=== PATIENT | female | born 1980 | race Caucasian/White ===

== ENCOUNTER 2017-12-20 20:24 | Emergency (ER) | payer OTHER ==
[2017-12-20 20:37] VITALS: BP 133/89
--- NOTE | 2017-12-20 20:50 | EDPHY ---
H & P Time Seen by Provider: 12/20/17 20:36 HPI/ROS: CHIEF COMPLAINT: Lip sores History by patient HISTORY OF PRESENT ILLNESS: 37-year-old woman with a history of recurrent cold sores for which she has taken Valtrex in the past presents complaining of burning pain, itchiness and redness underneath her lower lip. She has had symptoms began several weeks ago with a burning feeling like she was developing a cold sore. She got some relief by applying and I got a lip balm which she has been using regularly for a long time prior to the onset of the symptoms. She has also been in [place], back and forth visiting her father was recently diagnosed with cancer, and norris has had a large amount of sun exposure, and she noticed the symptoms seemed to get worse after being in the sun and she said she did get a sunburn on the area recently which also made it worse. As it seemed to get worse over the past few days on return from [place], she applied a moisturizing a face mask school last night and when she woke up this morning the area of redness had increased and expanded and become very itchy and uncomfortable. Patient denies biting her lip regularly or touching her mouth. She says it is painful to have food touch her lip because of these lesions. She was concerned that it might be related to a herpes cold sore so she took a dose of Valtrex 1000 mg this morning, with plans to take an additional 1000 mg tonight. REVIEW OF SYSTEMS: As in HPI, and all other systems reviewed and are negative Smoking Status: Never smoked Physical Exam: General Appearance: Alert and no distress. Head: normocephalic, atraumatic, no sinus tenderness Eyes: Pupils equal and round no injection. Lips: Upper lip within normal limits, lower lip positive external border of erythema with a cracking and tiny vesicle on right side, no intraoral lesions OP: mucus membranes moist, no tonsillar enlargement, no exudates Neck: no meningismus, no cervical nodes, no submandibular nodes Extremities have full range of motion and are nontender. Neuro: Awake alert oriented x3, cranial nerves 2-12 intact, normal gait Skin: No rashes or lesions except as described above around her mouth. Constitutional: Initial Vital Signs Temperature (C) 36.9 C 12/20/17 20:34 Heart Rate 86 12/20/17 20:34 Respiratory Rate 15 12/20/17 20:34 Blood Pressure 133/89 H 12/20/17 20:34 O2 Sat (%) 100 12/20/17 20:34 O2 Delivery Mode Room Air Allergies/Adverse Reactions: No Known Allergies Allergy (Unverified 12/20/17 20:31) Home Medications: Medication Instructions Recorded Amitriptyline HCl 12/20/17 Lo Ovral 12/20/17 valACYclovir [Valtrex (*)] 500 mg PO DAILY #10 tab 12/20/17 MDM/Departure - [facility] ED Course/Re-evaluation: [age] year old woman presents with area of redness, inflammation and small vesicle underneath her lower lip. I suspect multifactorial contribution of underlying herpes labialis, sun exposure and contact dermatitis from the facemask she applied last night causing worsening of her symptoms. Given the patient has had some degree of symptoms which sound somewhat like herpes labialis over the past month, we will treat her with completion of her treatment dose of Valtrex and then try a week to 10 days of suppressive dose. In addition I recommending stopping all cosmetic applications to her lips and keeping the area covered with bland ointment such as Aquaphor or Vaseline. I discussed this with the patient. I also recommend she follows up with her dispatcher tugboat particularly if it does not clear up or worsens. Patient does have a dispatcher tugboat in [place]. - Depart Disposition: Home, Routine, Self-Care Clinical Impression: Recurrent herpes labialis Contact dermatitis Qualifiers: Contact dermatitis type: irritant Contact dermatitis trigger: cosmetics Qualified Code(s): L24.3 - Irritant contact dermatitis due to cosmetics Condition: Good Instructions: Contact Dermatitis (ED), Oral Herpes Simplex Virus Infections (ED ) Additional Instructions: You were seen by Dr. Michelle Steve today. Your lipid irritation is probably due to a combination of herpes cold sore and dermatitis due to face mask exposure and sun exposure. Take your 2nd dose of Valtrex 1000 mg tonight and then take 500 mg (1 pill) daily for the next 7 days. Keep your lips covered with Aquaphor or Vaseline ointment and avoid any cosmetic products that have any scent, color or multiple ingredients. I recommend follow up with dispatcher tugboat if the lesions worsen or do not clear up. Return for any worsening or new concerns. Prescriptions: valACYclovir [Valtrex (*)] 500 mg PO DAILY #10 tab Referrals: ALONDRA GOFF [Primary Care Provider] - As per Instructions
== END 2017-12-20 20:56 | disposition home or self-care (01) ==
LOC: CED 20:24
DX: L24.3 Irritant contact dermatitis due to cosmetics (principal); B00.1 Herpesviral vesicular dermatitis